=== PATIENT | female | born 1985 | race Caucasian/White ===

== ENCOUNTER → 2022-04-13 09:06 | Outpatient (CLI) | payer BC, SELFPAY ==
--- NOTE | 2022-04-13 09:11 | US_ITS ---
FINAL REPORT CLINICAL HISTORY: abnormal uterine bleeding/ endometrial ablation FINDINGS: Transvaginal sonographic images of the pelvis were obtained. The uterus is inhomogeneous and measures 7.4 x 3.5 x 5.1 cm. The endometrium measures 2 mm, which is within normal limits. No uterine mass is identified. The right ovary measures 3.3 cm in length and left ovary measures 4.0 cm in length. Normal blood flow seen to the ovaries. There is a small follicle in the right ovary. There is a probable complex cyst in the left ovary measuring up to 1.9 cm. There is no evidence of free fluid. IMPRESSION: Inhomogeneous uterus. Probable complex cyst in the left ovary, up to 1.9 cm. Reviewed, Interpreted and Dictated by Edgardo Gonzalez III, MD Transcribed by Zayda Allen Authenticated and [facility]
== END ==
PROVIDERS: PCP Internal Medicine; Visit Provider Obstetrics & Gynecology
DX: N93.8 Other specified abnormal uterine and vaginal bleeding (principal); Z98.890 Other specified postprocedural states
CPT/HCPCS: 76830

== ENCOUNTER → 2022-08-07 08:42 | Outpatient (CLI) | payer BC, SELFPAY ==
[2022-08-07 10:56] LABS: Basophils # 0.1 K/mm3 (0-0.2); Basophils % 0.9 % (0.1-2.0); Eosinophils # 0.4 K/mm3 (0.0-0.4); Eosinophils % 5.5 % (0.1-12.0); Hematocrit 43.1 % (37.0-47.0); Hemoglobin 14.1 g/dL (12.2-16.2); Lymphocytes # 1.9 K/mm3 (0.7-4.5); Lymphocytes % 29.8 % (10-50); Mean Corpuscular HGB Conc 32.6 g/dL (31.8-35.4); Mean Corpuscular Hemoglobin 27.9 pg (27.0-31.2); Mean Corpuscular Volume 85.6 fl (81-99); Mean Platelet Volume 7.3 fl (7.4-10.4); Monocytes # 0.5 K/mm3 (0.1-1.0); Neutrophils # 3.7 K/mm3 (1.8-7.8); Neutrophils % 56.8 % (37.0-80.0); Platelet Count 317 K/mm3 (142-424); Red Blood Count 5.04 M/mm3 (4.20-5.40); Red Cell Distribution Width 13.2 % (11.5-17.5); White Blood Count 6.5 K/mm3 (4.8-10.8)
[2022-08-07 11:55] LABS: Chloride 104 mmol/L (98-107); Potassium 4.1 mmoL/L (3.5-5.1); Sodium 142 mmol/L (136-145)
[2022-08-07 11:57] LABS: Alanine Aminotransferase 32 U/L (12-78); Aspartate Amino Transferase 33 U/L (14-36); Blood Urea Nitrogen 8 mg/dl (7-17); Estimated Glomerular Filt Rate 81 ml/min (>60); GFR (African American) 98 ML/MIN (>60)
[2022-08-07 11:58] LABS: Albumin Level 3.9 g/dl (3.5-5.0); Albumin/Globulin Ratio 1.5 (1.1-1.8); Alkaline Phosphatase 76 U/L (38-126); Anion Gap 12.1 mEq/L (5-15); Bilirubin,Total 0.2 mg/dl (0.2-1.3); Calcium 9.4 mg/dl (8.4-10.2); Carbon Dioxide 30 mmol/L (22.0-30.0); Globulin 2.6 g/dL (1.3-3.2); Glucose 83 mg/dl (74-100); Total Protein,Serum 6.5 g/dl (6.3-8.2)
[2022-08-07 12:17] LABS: HCG,Quantitative < 2 mIU/ml (0-5.42)
== END ==
PROVIDERS: PCP Internal Medicine; Visit Provider Obstetrics & Gynecology
DX: N80.9 Endometriosis, unspecified (principal); Z01.812 Encounter for preprocedural laboratory examination
CPT/HCPCS: 36415; 80053; 84702; 85025

== ENCOUNTER 2022-08-08 06:48 | Observation (INO) | payer BC, SELFPAY ==
--- NOTE | 2022-08-02 15:41 | SUR.PREOP ---
Attempted to call pt for pre-op phone call @ this time. No answer, call back # left.
--- NOTE | 2022-08-05 10:16 | SUR.PREOP ---
Attempted pre-op phone call again @ this time. No answer, message left.
[2022-08-08] VITALS (24 sets, daily range): BP systolic 109–154; BP diastolic 60–89; PULSE 51–109; RESP 14–18; TEMP 36.4–43; O2SAT 92–100; BMI 34.4
[2022-08-08 06:54] LABS: Coronavirus 19, PCR Not Detected (NotDetected); Influenza A, PCR Not Detected (NotDetected); Influenza B, PCR Not Detected (NotDetected)
--- NOTE | 2022-08-08 07:20 | EXP.HP ---
History of Present Illness *Admission Date: 08/08/22 *Reason for visit:: Abnormal uterine bleeding, dysmenorrhea, S/p endometrial ablation *History of present illness: Ms Bing Pretty is a 36 yo P0000 who presents scheduled surgery. History of endometrial ablation in 2006 for menorrhagia and dysmenorrhea. No history of tubal ligation or contraception. She admits periods returned more than one year ago. Periods are very irregular, every 24-50 days. She states flow alternates between light spotting for 10 days and 2-3 days of heavy bleeding. FDLMP 07/31/22. She states periods are becoming more painful. She has never been . She does not want to ever be . She has history of PCOS and endometriosis. She has history of gastric sleeve procedure in 2018. Pelvic ultrasound 04/13/22 demonstrated?uterus inhomogeneous and measures 7.4 x 3.5 x 5.1 cm. The endometrium measures 2 mm, which is within normal limits. No uterine mass is identified. The right ovary measures 3.3 cm in length and left ovary measures 4.0 cm in length. Normal blood flow seen to the ovaries.? Small follicle in the right ovary.? Probable complex cyst in the left ovary measuring up to 1.9 cm.? No evidence of free fluid.?She requests definitive surgical intervention with hysterectomy. [facility] Medical History Dysmenorrhea Endometriosis History of COVID-19 Psoriasis Surgical History H/O gastric sleeve History of surgery [place] teeth removed Family History Mother Uterine cancer Grandmother Uterine cancer Social History Smoking Status: Never smoker alcohol intake: never substance use type: denies use current occupational status: employed (works at [employer]) Travel in the last 8 weeks: None household members: spouse Review of Systems Review of Systems Review of systems:: pertinent systems reviewed and negative unless documented below *Genitourinary Genitourinary: Reports abnormal vaginal bleeding and Reports dysmenorrhea Meds Home Medications and Allergies Home Medications Medication Instructions Recorded Confirmed Type multivitamin (Daily Multi-Vitamin 1 tab PO DAILY Supplement 04/07/22 08/08/22 History tablet) New Prescriptions to Start Prescriptions: Allergies Allergy/AdvReac Type Severity Reaction Status Date / Time No Known Allergies Allergy Verified 08/08/22 06:25 Exam Data for Last 24 hours Vital signs and Labs for Last 24 Hours: Temp Pulse Resp BP Pulse Ox 97.5 F L 75 18 149/79 H 97 08/08/22 06:26 08/08/22 06:26 08/08/22 06:26 08/08/22 06:26 08/08/22 06:26 I & O for Last 24 hours: Intake & Output 08/05/22 08/06/22 08/07/22 08/08/22 23:59 23:59 23:59 23:59 Weight 220 lb Constitutional Constitutional: no acute distress and cooperative *Routine HEENT Exam Head: Present normocephalic and atraumatic Eye: Absent conjunctivae pink ENT: Present mucous membranes moist *Routine Neck Exam Neck: Present full ROM *Routine Respiratory Exam Respiratory: Present CTA bilaterally and normal respiratory effort *Routine Cardiovascular Exam Cardiovascular: Present RRR *Routine Abdominal Exam Abdominal: Present soft and normoactive bowel sounds; Absent tenderness or distended *Routine Rectal Exam Rectal:: deferred *Routine Genitalia Exam Genitalia:: deferred *Routine Extremities Exam Extremities: Present full ROM; Absent edema or calf tenderness *Routine Neurological Exam Neurological: Present alert, oriented X3 and moving all extremities Routine Psychiatric Exam Psychiatric: Present normal affect and cooperative Assessment and Plan *Assessment and plan (1) Abnormal uterine bleeding: Status: Acute Category: Medical Code(s): N93.9 - Abnormal uterine and vaginal bl
--- NOTE | 2022-08-08 09:08 | SUR.OPER ---
0910- family updated of pt current status at this time via john rodriges
--- NOTE | 2022-08-08 10:20 | EXP.OP.NOTE ---
Date of procedure: 08/08/22 Pre-op Diagnosis:: 1. Abnormal uterine bleeding 2. Dysmenorrhea 3. History of endometriosis 4. PCOS 5. Obesity Post-op Diagnosis:: 1. Abnormal uterine bleeding 2. Dysmenorrhea 3. History of endometriosis 4. PCOS 5. Obesity 6. Stage 1 endometriosis of pelvic peritoneum 7. Bilateral patent ureters Procedure performed:: Total Laparoscopic Hysterectomy, bilateral salpingectomy, right oophorectomy, cystoscopy Surgeon:: Catalina Redding DO Show Worker(s):: Barb Her MD COMPUTERIZED MILL MILL RECORDER:: Other Anesthesia: GETA Estimated blood loss (mL): 100 Clinical Note:: Ms Bing Pretty is a 36 yo P0000 who presents scheduled surgery. History of endometrial ablation in 2006 for menorrhagia and dysmenorrhea. No history of tubal ligation or contraception. She admits periods returned more than one year ago. Periods are very irregular, every 24-50 days. She states flow alternates between light spotting for 10 days and 2-3 days of heavy bleeding. FDLMP 07/31/22. She states periods are becoming more painful. She has never been . She does not want to ever be . She has history of PCOS and endometriosis. She has history of gastric sleeve procedure in 2018. Pelvic ultrasound 04/13/22 demonstrated?uterus inhomogeneous and measures 7.4 x 3.5 x 5.1 cm. The endometrium measures 2 mm, which is within normal limits. No uterine mass is identified. The right ovary measures 3.3 cm in length and left ovary measures 4.0 cm in length. Normal blood flow seen to the ovaries.? Small follicle in the right ovary.? Probable complex cyst in the left ovary measuring up to 1.9 cm.? No evidence of free fluid.?She requests definitive surgical intervention with hysterectomy. Operative findings:: 1. Cervix appeared grossly normal 2. On bimanual exam, uterus retroverted, midline and normal size and shape. No adnexal masses palpated 3. On laparoscopic exam, grossly normal appearing liver, gallbladder, stomach, omentum and bowel. Appendix not visualized 4. Grossly normal appearing uterus, bilateral fallopian tubes and ovaries 5. Endometriosis powder burn lesions present on vesicouterine peritoneum, right ovary and posterior cul-de-sac. Beginning of [place] Masters defect in posterior cul-de-sac 6. Two small areas with thin, filmy adhesions noted between lower uterine segment and bladder Operative note:: Discussed risks, benefits, alternatives, expectations and possible complications of surgery. All questions addressed and answered. Patient wished to proceed with surgery. Patient was wheeled back to the operating room and placed under general anesthesia without difficulty. She was placed in the dorsal lithotomy position. She was prepped and draped in normal sterile fashion. Beginning at the vagina, a almeida catheter was inserted into the bladder and draining clear urine prior to the start of the procedure. Weighted Auvuard was placed in the vaginal vault. Anterior lip of the cervix was grasped with single tooth tenaculum. Uterus sounded to 8. Jann dilators were used to dilate the cervix. Advincula uterine manipulator was inserted into the cervix with the colpotomy cup covering the cervix. Single tooth tenaculum was removed prior to complete placement of colpotomy cup over cervix. Uterine balloon was filled with 10cc of air. Vaginal balloon was filled with 60 cc of air. Weighted Auvard was removed. Attention was then turned to the abdomen. Skin just below the umbilicus was injected with 0.5% marcaine. A 2cm infraumbilical incision was made. Veress needle was tested and inserted intrabdominally. Opening pressure was 8 mm Hg. The peritoneal cavity was insulflated to 15 mm Hg. Laparoscope within 11 mm blunt trocar was inserted intrabdominally under direct visualization. Obturator and scope were removed. Laparoscope was inserted into the trocar sleeve. Abdomen and pelvis was viewed in its entirety. Examination of the peritoneal cavity revealed no signs of injury from entry and normal anatomic st
--- NOTE | 2022-08-08 10:35 | EXP.ANES.CKL ---
[facility] Medical History Dysmenorrhea Endometriosis History of COVID-19 Psoriasis Surgical History H/O gastric sleeve History of surgery [place] teeth removed Family History Mother Uterine cancer Grandmother Uterine cancer Social History Smoking Status: Never smoker alcohol intake: never substance use type: denies use current occupational status: employed (works at [employer]) Travel in the last 8 weeks: None household members: spouse [facility] Anesthesia Checklist Patient Identification Patient Identification: Arm Band and Family Structural Data Admitted From: Direct Admit Planned Operative Procedure/s: [facility] Consent for Planned Operative Procedure(s) Verified: Yes Verified Documents: Surgical Consent and History and Physical NPO Status Verified Time NPO: 00:00 Additional verifications Patient : No Anesthesia Reactions: No Hx Blood Transfusions: No Blood Transfusion Reaction: No Cephalosporin Allergy: No Previous Colonoscopy: Yes Airway Assessment C-Spine Mobility Assessed: Yes TMJ Mobility Assessed: Yes Dentition: Good Dentition Neurological Assessment Level of Consciousness: Awake, Alert, Appropriate and Follows Commands Hx Seizures: No Numbness or tingling in extremities: No Genitourinary Assessment Voided stonecutter to O.R.: Yes Anesthesia Plan Anesthesia Risk discussed: Yes ASA Class: I Anesthesia Type: General
--- NOTE | 2022-08-08 10:38 | P.PNANES_ITS ---
[facility] Anesthesia Record Part I Anesthesia Record I Intake, IV Amount: 1,400 Estimated blood loss (mL): 100 Urine output (mL): 0 Blood Products used (#): none Blood Pressure: 115/74 SaO2: 94 Pulse Rate: 67 Respiratory Rate: 14 Temperature: 97.6 F Patient is:: Drowsy, Nasal O2 and Stable Stable to PACU at:: 10:19
--- NOTE | 2022-08-08 10:49 | PC.NURSE ---
Report received from broke beater operator.
--- NOTE | 2022-08-08 10:54 | SUR.PHASEI ---
Small amount of vaginal bleeding noted in PACU. Pt cleaned and chux changed prior to transporting to floor.
--- NOTE | 2022-08-08 11:10 | PC.NURSE ---
Pt to unit, room 279 via bed and O.R. staff x2.
--- NOTE | 2022-08-08 13:43 | EXP.ANES.II ---
[facility] Anesthesia Record Part II Anesthesia Record Part II Discharge Time: 10:49 Destination: Obstetric PACU nurse assessment reviewed?: Yes Patient Condition:: Good Anesthesia Complications:: None Swallowing reflex intact?: Yes Cyanosis?: No Blood Pressure: 131/74 Pulse Rate: 66 Temperature: 97.6 F Mental Status: Alert & Oriented Pain level:: 0 Nausea and/or vomitting:: None Intake, IV Amount: 0
--- NOTE | 2022-08-08 15:46 | PC.NURSE ---
Pt sleeping soundly on left side.
--- NOTE | 2022-08-08 16:31 | PC.NURSE ---
Resting w/o complaints. Has been up to the bathroom to void twice now. Voided large amts. 3 lap sites to abdomen. Lungs clear. Heart mumur auscultated. No edema. Tolerating regular diet. Incentive spirometer provided and usage verbalized. Pt very drowsy at this time. Will use later. chapstick provided per request. Saline lock remains in rt hand, flushes easily.
--- NOTE | 2022-08-08 19:05 | PC.NURSE ---
REPORT RECIEVED FROM CORIERN
--- NOTE | 2022-08-08 19:05 | PC.NURSE ---
Report given to DONATO Reyna.
--- NOTE | 2022-08-08 20:15 | PC.NURSE ---
ASSESSMENT DONE AT THIS TIME.PT REPORTS HAVING A CONSTANT PAIN,MORE SO WITH MOVEMENT.RATES IT A 4-5 ON SCALE OF 0-10.LUNGS CLEAR,RESP.EVEN AND UNLABORED,SAT.LEVEL 94% ON ROOM AIR.PT ABLE TO ACHIEVE 2500ML ON INCENTIVE SPIROMETER.PT REPORTS PASSING GAS AND VOIDING WITHOUT DIFF.3 LAP SITES OPEN TO AIR.WILL MEDICATE
--- NOTE | 2022-08-08 23:37 | PC.NURSE ---
PT WAS SLEEPING,EASILY AROUSED,ANCEF 2GRAMS HUNG AT THIS TIME,NO NEEDS OR CONCERNS VOICED
[2022-08-09 00:15] VITALS: BP 114/61; PULSE 82; RESP 18; TEMP 37.2; O2SAT 94
--- NOTE | 2022-08-09 01:28 | PC.NURSE ---
PT SLEEPING SOUNDLY AT THIS TIME
[2022-08-09 04:25] VITALS: BP 118/67; PULSE 80; RESP 17; TEMP 37; O2SAT 95
--- NOTE | 2022-08-09 04:39 | PC.NURSE ---
REASSESSMENT THIS MORNING,PT REPORTS RIGHT HAND PAINFUL WHERE IV IS,LITTLE SWOLLEN,PT POSSIBLEY GOING HOME TODAY,DISCONTINUED.LUNGS CLEAR,RESP.EVEN AND UNLABORED.PT REPORTS SHE HAS BEEN UP TO BATHROOM 3 TIMES TONIGHT,THE LAST TIME SHE SAID SHE WENT REALLY GOOD,REPORTS PASSING GAS.3 LAP SITES OPEN TO AIR AND SEALED WITH DERMABOND AFEBRILE .PT DENIES ANY PAIN AT THIS TIME
--- NOTE | 2022-08-09 07:15 | PC.NURSE ---
REPORT GIVEN TO KLEVERRN
[2022-08-09 07:31] LABS: Basophils % 0.2 % (0.1-2.0); Eosinophils # 0.1 K/mm3 (0.0-0.4); Eosinophils % 1.3 % (0.1-12.0); Hematocrit 37.7 % (37.0-47.0); Hemoglobin 12.5 g/dL (12.2-16.2); Lymphocytes # 0.6 K/mm3 (0.7-4.5); Lymphocytes % 8.1 % (10-50); Mean Corpuscular HGB Conc 33.2 g/dL (31.8-35.4); Mean Corpuscular Hemoglobin 28.8 pg (27.0-31.2); Mean Corpuscular Volume 86.8 fl (81-99); Mean Platelet Volume 7.6 fl (7.4-10.4); Monocytes # 0.3 K/mm3 (0.1-1.0); Neutrophils # 5.9 K/mm3 (1.8-7.8); Neutrophils % 85.4 % (37.0-80.0); Platelet Count 246 K/mm3 (142-424); Red Blood Count 4.35 M/mm3 (4.20-5.40); Red Cell Distribution Width 13.1 % (11.5-17.5); White Blood Count 6.9 K/mm3 (4.8-10.8)
[2022-08-09 07:34] LABS: MANUAL DIFFERENTIAL MANUAL DIFFERENTIAL (MANUAL DIFF)
[2022-08-09 07:43] LABS: Anion Gap 13.4 mEq/L (5-15); Blood Urea Nitrogen 11 mg/dl (7-17); Calcium 8.7 mg/dl (8.4-10.2); Carbon Dioxide 28 mmol/L (22.0-30.0); Chloride 99 mmol/L (98-107); Creatinine Clearance Estimated 153 mL/min (50-200); Estimated Glomerular Filt Rate 81 ml/min (>60); GFR (African American) 98 ML/MIN (>60); Glucose 99 mg/dl (74-100); Potassium 3.4 mmoL/L (3.5-5.1); Sodium 137 mmol/L (136-145)
[2022-08-09 08:00] VITALS: O2SAT 98
--- NOTE | 2022-08-09 08:03 | EXP.DC.SUM ---
General Admission date:: 08/08/22 Discharge date: 08/09/22 HPI HPI HPI: POD # 1 s/p TLH, BS, right oophorectomy, cystoscopy Patient resting comfortably in bed. Pain controlled with PO medication. Admits to light vaginal bleeding that is improving. Voiding without difficulty. Passing flatus. Tolerating regular diet. Denies fever/chills, chest pain and shortness of breath. No dizziness or lightheadedness. Hospital Course Hospital Course Hospital Course: Ms Bing Pretty is a 36 yo P0000 who presented to [facility] for scheduled surgery. History of endometrial ablation in 2006 for menorrhagia and dysmenorrhea. No history of tubal ligation or contraception. She admits periods returned more than one year ago. Periods are very irregular, every 24-50 days. She states flow alternates between light spotting for 10 days and 2-3 days of heavy bleeding. FDLMP 07/31/22. She states periods are becoming more painful. She has never been . She does not want to ever be . She has history of PCOS and endometriosis. She has history of gastric sleeve procedure in 2018. Pelvic ultrasound 04/13/22 demonstrated?uterus inhomogeneous and measures 7.4 x 3.5 x 5.1 cm. The endometrium measures 2 mm, which is within normal limits. No uterine mass is identified. The right ovary measures 3.3 cm in length and left ovary measures 4.0 cm in length. Normal blood flow seen to the ovaries.? Small follicle in the right ovary.? Probable complex cyst in the left ovary measuring up to 1.9 cm.? No evidence of free fluid.?She requests definitive surgical intervention with hysterectomy. She underwent a total laparoscopic hysterectomy with bilateral salpingectomy, right oophorectomy and cystoscopy on 08/08/22. EBL 100 cc. POD # 1 she was doing well. Pain controlled with PO medication. She was voiding without difficulty and passing flatus. She had light vaginal bleeding that was improving. She was tolerating regular diet. No fever/chills, chest pain or shortness of breath. Vital signs were stable, afebrile. Heart was regular rate and rhythm. Lungs clear to auscultation. Abdomen soft, appropriate mild tenderness to palpation. Incisions clean/dry/intact. No lower extremity edema. Normal hospital course. Exam Data for Last 24 hours Vital signs and Labs for Last 24 Hours: Temp Pulse Resp BP Pulse Ox 98.6 F 80 17 118/67 95 08/09/22 04:25 08/09/22 04:25 08/09/22 04:25 08/09/22 04:25 08/09/22 04:25 Laboratory Results - last 24 hr 08/09/22 07:20: WBC 6.9, RBC 4.35, Hgb 12.5, Hct 37.7, MCV 86.8, MCH 28.8, MCHC 33.2, RDW 13.1, Plt Count 246, MPV 7.6, Neut % (Auto) 85.4 H, Lymph % (Auto) 8.1 L, Ford % (Auto) 5.0, Eos % (Auto) 1.3, Baso % (Auto) 0.2, Neut # (Auto) 5.9, Lymph # (Auto) 0.6 L, Ford # (Auto) 0.3, Eos # (Auto) 0.1, Baso # (Auto) 0.0 08/09/22 07:20: Sodium 137, Potassium 3.4 L, Chloride 99, Carbon Dioxide 28, Anion Gap 13.4, BUN 11 D, Creatinine 0.80, Estimated Creat Clear 153, Estimated GFR 81, Est GFR ( Amer) 98, Glucose 99, Calcium 8.7 I & O for Last 24 hours: Intake & Output 08/06/22 08/07/22 08/08/22 08/09/22 23:59 23:59 23:59 23:59 Intake Total 1400 / 1400 Output Total 0 / 0 Balance 1399 / 1399 0 / 0 Weight 220 lb Constitutional Constitutional: no acute distress *Routine HEENT Exam Head: Present normocephalic and atraumatic Eye: Absent conjunctivae pink ENT: Present mucous membranes moist and dentition normal *Routine Neck Exam Neck: Present full ROM *Routine Respiratory Exam Respiratory: Present CTA bilaterally and normal respiratory effort *Routine Cardiovascular Exam Cardiovascular: Present RRR *Routine Abdominal Exam Abdominal: Present soft, normoactive bowel sounds and tenderness (appropriate mild tenderness to palpation postoperatively); Absent distended Comments: Laparoscopic incisions clean/dry/intact without drainage *Routine Rectal Exam Patient deferred: visual exam *Routine Exam Patient deferred: external
[2022-08-09 08:09] LABS: Lymphocytes % 6 % (10-50); Monocytes % 6 % (2-9); Neutrophils % 88 % (42-76); Total Cells Counted 100
[2022-08-09 08:10] LABS: Platelet Estimate Normal; RBC Morphology Normal
[2022-08-09 08:30] VITALS: BP 111/85; PULSE 75; RESP 18; TEMP 36.8; O2SAT 98
== END 2022-08-09 10:45 | disposition home or self-care (01) ==
LOC: OB 06:49
PROVIDERS: Admitting Provider Obstetrics & Gynecology; PCP Internal Medicine; Visit Provider Obstetrics & Gynecology
PROC: 0UT90ZZ Resection of Uterus, Open Approach (ICD-10-PCS; CPT 58150; principal; 2022-08-08 07:30)
DX: N94.6 Dysmenorrhea, unspecified (principal); N80.399 Endometriosis of the pelvic peritoneum, other specified sites, unspecified depth; N93.9 Abnormal uterine and vaginal bleeding, unspecified; E28.2 Polycystic ovarian syndrome
CPT/HCPCS: 58552; 36415; 80048; 85007; 85025; 88307; 96374; C9803; G0378; J2405; U0003; U0005

== ENCOUNTER 2023-08-13 01:39 | Emergency (ER) | payer BC, SELFPAY ==
[2023-08-13 01:42] VITALS: BP 132/89; PULSE 64; RESP 16; TEMP 36.6; O2SAT 97; BMI 34.4
[2023-08-13 03:20] VITALS: BMI 34.4
--- NOTE | 2023-08-13 03:21 | XR_ITS ---
PROCEDURE INFORMATION: Exam: XR Left Forearm Exam date and time: 08/13/2023 4:08 AM Age: 37 years old Clinical indication: Pain; Lower or forearm; Left; Additional info: Ran into wall TECHNIQUE: Imaging protocol: Radiologic exam of the left forearm. Views: 2 views. COMPARISON: CR Hand L 08/13/2023 4:07 AM FINDINGS: Bones/joints: Normal. Soft tissues: Normal. IMPRESSION: No acute findings.
--- NOTE | 2023-08-13 03:21 | XR_ITS ---
PROCEDURE INFORMATION: Exam: XR Left Hand Exam date and time: 08/13/2023 4:07 AM Age: 37 years old Clinical indication: Pain; Hand; Left; Additional info: Ran into wall TECHNIQUE: Imaging protocol: Radiologic exam of the left hand. Views: 3 or more views. COMPARISON: No relevant prior studies available. FINDINGS: Bones/joints: Normal. Soft tissues: Normal. IMPRESSION: No acute findings.
[2023-08-13 03:30] VITALS: BP 125/76; PULSE 61; O2SAT 98
[2023-08-13 04:00] VITALS: BP 137/87; PULSE 62; O2SAT 97
--- NOTE | 2023-08-13 05:00 | HMH.EDGENADL ---
Discharge Plan Disposition Patient Disposition: Home, Self-Care Condition: Good Prescriptions Prescriptions: No Action multivitamin [Daily Multi-Vitamin] Tablet 1 tab PO DAILY metronidazole 500 mg tablet 500 mg PO BID 7 Days Qty: 14 0RF polyethylene glycol 3350 [Miralax] 17 gram Powder In Packet 17 g PO BID 3 Days Qty: 6 0RF Referrals Follow up/Referrals: Rebel Noel MD [Primary Care Provider] - See instructions Activity Restrictions/Add. Instructions Additional Instructions/Restrictions: Return if any concerns. Clinical Impressions Clinical Impression: Contusion of hand Discharge ED Provider: [facility] HPI General Chief complaint: Extremity Injury, Upper Stated complaint: AO 08/12/23 1500 Injury left index finger Time Seen by Provider: 08/13/23 03:18 Mode of Arrival: Ambulatory Source of Information: Patient Limitations: No Limitations Description of Symptoms (Recalled from ER Triage Doc. by RN): pt reports running into a wall in dark room playing laser tag, hurt left index finger History of Present Illness HPI narrative: Patient is a 37-year-old female previously healthy presenting with left hand injury. At approximately 3 PM on 08/12 patient was playing laser tag when she hit her left hand. Since then she has had progressively worsening pain of the left second metacarpal and proximal phalanx. Denies numbness or lacerations or other concerns. Related Data Home Medications Medication Instructions Recorded Confirmed multivitamin (Daily Multi-Vitamin 1 tab PO DAILY Supplement 04/07/22 09/19/22 tablet) Previous Rx's Medication Instructions Recorded polyethylene glycol 3350 17 gram 17 g PO BID 3 days #6 ea 08/09/22 oral powder packet (Miralax) metronidazole 500 mg tablet 500 mg PO BID 7 days #14 tabs 09/21/22 Allergies Allergy/AdvReac Type Severity Reaction Status Date / Time No Known Allergies Allergy Verified 09/19/22 09:25 [facility] Disclaimer: The information contained in this section may have been updated after the patient was seen, as this information can be updated by other users. Medical History Dysmenorrhea Endometriosis History of COVID-19 Psoriasis Surgical History H/O gastric sleeve History of surgery S/P laparoscopic hysterectomy (08/08/22) [place] teeth removed Family History Mother Uterine cancer Grandmother Uterine cancer Social History Smoking Status: Never smoker alcohol intake: never substance use type: denies use current occupational status: employed (works at [employer]) Travel in the last 8 weeks: None household members: spouse ROS Obtained: Yes All systems reviewed & no additional complaints except as documented Physical Exam General General appearance: alert and in no apparent distress Head Head exam: atraumatic, normocephalic and normal inspection Eye Eye exam: Present normal appearance, PERRL and EOMI ENT ENT exam: Present normal exam, normal oropharynx, mucous membranes moist, TM's normal bilaterally and normal external ear exam Neck Neck exam: Present normal inspection, full ROM and trachea midline; Absent meningismus or lymphadenopathy Chest Chest inspection: Present normal inspection and symmetric chest wall rise; Absent tenderness Respiratory Respiratory exam: Absent respiratory distress or stridor Cardiovascular Cardiovascular exam: Present regular rate and normal rhythm Abdominal Exam Abdominal exam: Absent distention, tenderness or guarding Extremities Exam Extremities exam: Present full ROM, normal capillary refill and other (Mild swelling and tenderness to palpation of the left second metacarpal and left second proximal phalanx. Slig
[2023-08-13 06:04] VITALS: BP 137/85; PULSE 60; RESP 18; TEMP 36.8; O2SAT 98
== END 2023-08-13 06:05 | disposition home or self-care (01) ==
PROVIDERS: Emergency Provider Emergency Medicine; PCP Internal Medicine
DX: S60.022A Contusion of left index finger without damage to nail, initial encounter (principal); W22.01XA Walked into wall, initial encounter
CPT/HCPCS: 73090; 73130; 99284